=== PATIENT | female | born 1955 | race Caucasian/White ===

== ENCOUNTER → 2016-11-15 | Day surgery (SDC) | payer OTHER ==
[~2016-11-15] VITALS: Ht 162.6 cm; Wt 74.4 kg
[~2016-11-15] MED LIST: ALBU17IN INH; ASPI81TA85 PO; ATEN25TA PO; ATOR1TAB19 PO; BUPIVACAINE/EPIN 0.25% 30 ML VIAL As Ordered ONE; BUPIVACAINE/EPIN 0.25% 30 ML VIAL XX ONE; FISH1000 PO; GLYCOPYRROLATE INJ 0.2 MG/ML 2 ML VIAL As Ordered ONE; HYDROmorphone HCL 1 MG/ML SYRINGE (J1170) As Ordered ONE; KETOROLAC 30 MG/ML VIAL (J1885) As Ordered ONE; KETOROLAC 30 MG/ML VIAL (J1885) IV PRN; LIDOCAINE 2% INJ 100 MG/5 ML SDV (FOR ANES.) As Ordered ONE; LR 1,000 ML IV SCH; MIDAZOLAM INJ 2 MG/2 ML VIAL (J2250) As Ordered ONE; NEOSTIGMINE 1MG/ML 5 ML SYRINGE (J2710) As Ordered ONE; NORCOTAB PO; ONDANSETRON 4MG/2ML VIAL (J2405) As Ordered ONE; ONDANSETRON 4MG/2ML VIAL (J2405) IV PRN; PARO20TA2 PO; POTA10CA PO; PROPOFOL 200 MG/20 ML VIAL As Ordered ONE; ROCURONIUM BROMIDE 50 MG/5 ML VIAL As Ordered ONE; SENN1TAB2 PO; SUMA50TA2 PO; fentaNYL 100 MCG/2 ML INJECTION (J3010) As Ordered ONE; fentaNYL 100 MCG/2 ML INJECTION (J3010) IV PRN
[2016-11-15] MEDS: HYDROmorphone HCL 1 MG/ML SYRINGE (J1170) IV PRN ×5 (14:34→15:20)
[2016-11-15 16:20] VITALS: BP 113/58
--- NOTE | 2016-11-16 14:57 | ECGEPIP ---
Stationary ECG Study [facility] Test Date: 2016-11-15 Pat Name: BELLA ART Department: Room: - Gender: F Pipe Welder: ISABEL : 1955 Requested By: ATA Oakley Order Number: [id number] Reading MD: Jf Cuadra Measurements Intervals [place] Rate: 52 P: 38 NV: 143 QRS: 48 QRSD: 93 T: 34 QT: 439 QTc: 411 Interpretive Statements SINUS BRADYCARDIA NO CHANGE SINCE 02/21/12 Electronically Signed On 11-16-2016 14:57:14 EST by Jf Cuadra
--- NOTE | 2016-11-18 05:22 | RO ---
DATE OF PROCEDURE: 11/15/2016 PREOPERATIVE DIAGNOSIS: Symptomatic cholelithiasis. POSTOPERATIVE DIAGNOSIS: Symptomatic cholelithiasis. PROCEDURE: Laparoscopic cholecystectomy. SURGEON: Dr. Macdonald INDUSTRIAL MACHINE OPERATOR: Dr. Fair ANESTHESIA: General. ESTIMATED BLOOD LOSS (EBL): 5. COMPLICATIONS: None. INDICATIONS FOR PROCEDURE: Patient is a 61-year-old female with persistent right upper quadrant pain found to have symptomatic cholelithiasis. Recommendation to proceed with laparoscopic, possible open cholecystectomy. Risks and benefits of procedure not limited to but including bleeding, infection, hernia formation, damage to surrounding structures, need for further surgery were discussed in detail with the patient. Informed consent was obtained and procedure was planned. DESCRIPTION OF PROCEDURE: Patient brought back to operating room #6. After sufficient sedation, the abdomen was sterilely prepped and draped. Next, time-out was done to confirm proper patient and proper procedure. Following that a stab incision made in left lower quadrant. At this point, a Veress needle was inserted and the abdomen was insufflated to 15 mmHg. Next, a 5 mm supraumbilical incision was made. A 5 mm Optiview port was used to gain access to the abdomen. Once the abdomen was entered, Veress needle site was examined. There were no signs of injury. Veress needle was then removed. A 10 mm port was placed subxiphoid and two 5 mm ports in right upper quadrant. The gallbladder was elevated up towards the right shoulder. Cystic duct and cystic artery were both dissected free. They were both then doubly clipped and cut. Gallbladder was then removed from the gallbladder fossa using electrocautery. Brought out through the subxiphoid port site using a 10 mm EndoCatch bag. Abdomen was then irrigated to confirm hemostasis. Abdomen was then desufflated. Skin incisions closed with #4-0 Vicryl subcuticular sutures. Abdomen was cleaned and dried. Steri-Strips, 4 x 4 and tapes were applied, thus ending procedure.
== END | disposition home or self-care (01) ==
LOC: M SDC 12:24
PROVIDERS: ATTEND Surgery
DX: K80.20 Calculus of gallbladder without cholecystitis without obstruction (principal); H60.399 Other infective otitis externa, unspecified ear; H61.20 Impacted cerumen, unspecified ear; H60.90 Unspecified otitis externa, unspecified ear; J31.0 Chronic rhinitis; H92.10 Otorrhea, unspecified ear; H90.5 Unspecified sensorineural hearing loss; H74.09 Tympanosclerosis, unspecified ear; H69.90 Unspecified Eustachian tube disorder, unspecified ear; H92.09 Otalgia, unspecified ear; I10 Essential (primary) hypertension; G43.909 Migraine, unspecified, not intractable, without status migrainosus; D68.62 Lupus anticoagulant syndrome; E78.5 Hyperlipidemia, unspecified; E87.6 Hypokalemia; T88.59XD Other complications of anesthesia, subsequent encounter; R06.83 Snoring; M81.0 Age-related osteoporosis without current pathological fracture; R29.898 Other symptoms and signs involving the musculoskeletal system; Z78.0 Asymptomatic menopausal state; Z98.51 Tubal ligation status; J44.9 Chronic obstructive pulmonary disease, unspecified; Z88.1 Allergy status to other antibiotic agents; Z91.018 Allergy to other foods; Z79.899 Other long term (current) drug therapy; Z79.82 Long term (current) use of aspirin
CPT/HCPCS: 47562; 88304; 93005; 96374; 96375; J0690; J1170; J1885; J2250; J2405; J2710; J3010

== ENCOUNTER → 2016-12-19 | Outpatient (CLI) | payer OTHER ==
[~2016-12-19] MED LIST changes: -BUPIVACAINE/EPIN 0.25% 30 ML VIAL As Ordered ONE; -BUPIVACAINE/EPIN 0.25% 30 ML VIAL XX ONE; -GLYCOPYRROLATE INJ 0.2 MG/ML 2 ML VIAL As Ordered ONE; -HYDROmorphone HCL 1 MG/ML SYRINGE (J1170) As Ordered ONE; -KETOROLAC 30 MG/ML VIAL (J1885) As Ordered ONE; -KETOROLAC 30 MG/ML VIAL (J1885) IV PRN; -LIDOCAINE 2% INJ 100 MG/5 ML SDV (FOR ANES.) As Ordered ONE; -LR 1,000 ML IV SCH; -MIDAZOLAM INJ 2 MG/2 ML VIAL (J2250) As Ordered ONE; -NEOSTIGMINE 1MG/ML 5 ML SYRINGE (J2710) As Ordered ONE; -ONDANSETRON 4MG/2ML VIAL (J2405) As Ordered ONE; -ONDANSETRON 4MG/2ML VIAL (J2405) IV PRN; -PROPOFOL 200 MG/20 ML VIAL As Ordered ONE; -ROCURONIUM BROMIDE 50 MG/5 ML VIAL As Ordered ONE; -fentaNYL 100 MCG/2 ML INJECTION (J3010) As Ordered ONE; -fentaNYL 100 MCG/2 ML INJECTION (J3010) IV PRN
--- NOTE | 2016-12-19 11:05 | REPMRS ---
Patient History The patient states she had a clinical breast exam in Patient is postmenopausal. No known family history of cancer. Taking unspecified hormones for 1 year. Digital Woman Screen Mammo: December 19, 2016 - Exam #: [id number] Bilateral CC and MLO view(s) were taken. Technologist: Enedelia Huerta, Technologist Prior study comparison: November 29, 2015, digital woman screen mammo performed at [facility]. November 22, 2014, digital woman screen mammo performed at [facility]. November 18, 2013, digital woman screen mammo performed at [facility]. FINDINGS: There are scattered fibroglandular densities. There has been no change in the appearance of the mammogram from the prior studies. There is a mild amount of scattered fibroglandular density which is fairly symmetric. There is no interval development of dominant mass, architectural distortion, or clustered microcalcification suggestive of malignancy. ASSESSMENT: BI-RADS/ACR category 1 mammogram. Negative. Recommendation Routine screening mammogram in 1 year (for women over age 40). This mammogram was interpreted with the aid of an FDA-approved computer-aided dectection system. Electronically Signed By: Ramiro Mane MD 12/19/16 [id number]
== END ==
LOC: M WHC 08:51
PROVIDERS: ATTEND Nurse Practitioner Women's Health
DX: Z12.31 Encounter for screening mammogram for malignant neoplasm of breast (principal); Z78.0 Asymptomatic menopausal state

== ENCOUNTER → 2016-12-19 | Outpatient (REF) | payer OTHER | LOC: M SFHCWAGY 15:08 | PROVIDERS: ATTEND Nurse Practitioner Women's Health | DX: Z12.4 Encounter for screening for malignant neoplasm of cervix (principal); N95.2 Postmenopausal atrophic vaginitis ==

== ENCOUNTER → 2017-01-02 | Outpatient (CLI) | payer OTHER ==
--- NOTE | 2017-01-03 13:07 | DEXA ---
AP SPINE L1 - L4 1.010 -1.5 -0.6 LT FEMUR TOTAL 0.846 -1.3 -0.6 RT FEMUR TOTAL 0.769 -1.9 -1.2 TOTAL BODY TOTAL OTHER DUAL FEMUR FRAX* ASSESSMENT Risk factors: None. 10 year probability of fracture Major osteoporotic fracture 12.1 % Hip fracture 2.3 % COMMENTS: There is low bone density of the spine. There is low bone density of the left hip. There is osteoporosis of the right hip based on femoral neck T score -2.5. There is degenerative change in the spine which may artificially elevate the BMD. The increased density of the spine does not represent significant change since 11/24/2014. The decreased density of the left hip does not represent a significant change since 11/24/2014. The decreased density of the right hip does represent a significant change. The density of the spine has decreased 3.8% since initial exam on 03/21/2006. The spine density has increased 1.3% since the most recent exam on 11/24/2014. The density of the left hip has decreased 3.5% since the initial exam on 2005. The density of the left hip has decreased 0.9% since the most recent exam on . The density of the right hip has decreased 2.9% since the initial exam on 2015. The density of the right hip has decreased 1.7% since the most recent exam on . FOLLOW-UP: Recommendation for the next bone density exam: 2 years. LUL
== END ==
LOC: M WHC 07:52
PROVIDERS: ATTEND Nurse Practitioner Women's Health
DX: M85.80 Other specified disorders of bone density and structure, unspecified site (principal); Z78.0 Asymptomatic menopausal state

== ENCOUNTER → 2017-07-21 | Outpatient (REF) | payer OTHER ==
[~2017-07-21] MED LIST changes: -PARO20TA2 PO; +PARO20TA3 PO
== END ==
LOC: M LAB REF 13:19
PROVIDERS: ATTEND Physician Assistant
DX: J02.9 Acute pharyngitis, unspecified (principal)

== ENCOUNTER → 2018-04-01 | Outpatient (CLI) | payer OTHER | LOC: M WHC 09:13 | DX: Z12.31 Encounter for screening mammogram for malignant neoplasm of breast (principal) | CPT/HCPCS: 77067 ==

== ENCOUNTER → 2018-10-20 | Outpatient (REF) | payer OTHER | LOC: M LAB REF 10:19 | DX: H60.8X3 Other otitis externa, bilateral (principal) ==

== ENCOUNTER → 2019-02-15 | Outpatient (REF) | payer OTHER ==
[~2019-02-15] MED LIST changes: +HYDR-3715 PO; +KLOR10TA76 PO; -NORCOTAB PO; -POTA10CA PO; -SENN1TAB2 PO; +SENN1TAB40 PO
== END ==
LOC: M LAB REF 16:12
PROVIDERS: ATTEND Physician Assistant Medical
DX: H92.12 Otorrhea, left ear (principal)

== ENCOUNTER → 2019-04-02 | Outpatient (CLI) | payer OTHER ==
--- NOTE | 2019-04-02 11:03 | REPMRS ---
Patient History The patient states she had a clinical breast exam in 03/2019. No known family history of cancer. Took unspecified hormones for 1 year. 3D TOMOSYNTHESIS WAS PERFORMED. Digital Woman Screen Mammo: April 02, 2019 - Exam #: [id number] Bilateral CC and MLO view(s) were taken. Technologist: Rosangela Oliver, Technologist Prior study comparison: April 01, 2018, digital woman screen mammo performed at [facility]. December 19, 2016, digital woman screen mammo performed at [facility]. FINDINGS: There are scattered fibroglandular densities. There has been no change in the appearance of the mammogram from the prior studies. There is a mild amount of residual fibroglandular tissue which is fairly symmetric. There is no interval development of dominant mass, architectural distortion, or clustered microcalcification suggestive of malignancy. Assessment: BI-RADS/ACR category 1 mammogram. Negative Mammogram. Recommendation Routine screening mammogram in 1 year (for women over age 40). This mammogram was interpreted with the aid of an FDA-approved computer-aided dectection system. Electronically Signed By: Samir Beltran MD 04/02/19 [id number]
== END ==
LOC: M WHC 09:00
PROVIDERS: ATTEND Nurse Practitioner Women's Health
DX: Z12.31 Encounter for screening mammogram for malignant neoplasm of breast (principal)

== ENCOUNTER → 2019-07-05 | Outpatient (REF) | payer OTHER | LOC: M LAB REF 12:47 | PROVIDERS: ATTEND Physician Assistant | DX: N39.0 Urinary tract infection, site not specified (principal) ==

== ENCOUNTER → 2020-06-09 | Outpatient (CLI) | payer MEDICARE, OTHER ==
[~2020-06-09] MED LIST changes: -ASPI81TA85 PO; +ASPI81TA86 PO; +SENN-53 PO; -SENN1TAB40 PO
--- NOTE | 2020-07-05 10:04 | REPMRS ---
Patient History The patient states she had a clinical breast exam in 05/2020. Patient is postmenopausal. No known family history of cancer. Took unspecified hormones for 1 year. Digital Woman Screen Mammo: June 09, 2020 - Exam #: [id number] Bilateral CC and MLO view(s) were taken. Technologist: Gabriela Ortega, Technologist Prior study comparison: April 02, 2019, bilateral digital woman screen mammo performed at [facility]. April 01, 2018, digital woman screen mammo performed at [facility]. December 19, 2016, digital woman screen mammo performed at [facility]. FINDINGS: The breast tissue is almost entirely fat. The Volpara volumetric breast density category is: A. There has been no change in the appearance of the mammogram from the prior studies. There is no interval development of dominant mass, architectural distortion, or grouped microcalcification typical of malignancy. 3-D tomosynthesis shows no additional findings. Report was delayed due to a protracted computer network disruption experienced by this facility. Assessment: BI-RADS/ACR category 1 mammogram. Negative Mammogram. Recommendation Routine screening mammogram of both breasts in 1 year (for women over age 40). This patient's Lifetime Breast Cancer RIsk is estimated at 5.2 %. This mammogram was interpreted with the aid of an FDA-approved computer-aided dectection system. Electronically Signed By: Ramiro Mane MD 07/05/20 [id number]
== END ==
LOC: M WHC 11:23
PROVIDERS: ATTEND Nurse Practitioner Women's Health
DX: Z12.31 Encounter for screening mammogram for malignant neoplasm of breast (principal)

== ENCOUNTER → 2020-10-02 | Outpatient (REF) | payer MEDICARE, OTHER | LOC: M LAB REF 12:25 | PROVIDERS: ATTEND Physician Assistant Medical | DX: H60.63 Unspecified chronic otitis externa, bilateral (principal) ==

== ENCOUNTER → 2021-01-09 | Outpatient (CLI) | payer MEDICARE, BC ==
--- NOTE | 2021-01-09 11:29 | REPVR ---
PROCEDURE INFORMATION: Exam: CT Temporal Bones Without Contrast. Exam date and time: 01/09/2021 10:54 AM Age: 65 years old Clinical indication: Other: Ocheria cecy TECHNIQUE: Imaging protocol: Computed tomography images of the temporal bones without contrast. Radiation optimization: All CT scans at this facility use at least one of these dose optimization techniques: automated exposure control; mA and/or kV adjustment per patient size (includes targeted exams where dose is matched to clinical indication); or iterative reconstruction. COMPARISON: No relevant prior studies available. FINDINGS: Right inner ear: Normal. Right ossicles and middle ear: The middle ear ossicles are intact. There is thickening of the right tympanic membrane, potentially scarring. Right external auditory canal: There is diffuse soft tissue thickening of the right external auditory canal. Right facial nerve canal: Normal. Right jugular foramen: No jugular dehiscence. Right carotid canal: No aberrant carotid canal. Right mastoid air cells: There is fluid opacification of right mastoid air cells. Left inner ear: Normal. Left ossicles and middle ear: Normal. The middle ear ossicles are intact. Left external auditory canal: Normal. Left facial nerve canal: Normal. Left jugular foramen: No jugular dehiscence. Left carotid canal: No aberrant carotid canal. Left mastoid air cells: Normal. No mastoid effusions. Soft tissues: Unremarkable. IMPRESSION: 1. Diffuse thickening of the right external auditory canal, suggestive of otitis externa. 2. Thickening of the right tympanic membrane, potentially scarring. 3. Fluid opacification of left mastoid air cells, likely effusion. Electronically signed by: Tere Castano On 01/09/2021 11:29:29 AM
== END ==
LOC: M RAD 10:50
PROVIDERS: ATTEND Physician Assistant Medical
DX: H92.13 Otorrhea, bilateral (principal)

== ENCOUNTER → 2021-04-11 | Outpatient (REF) | payer MEDICARE, BC | LOC: M LAB REF 12:19 | PROVIDERS: ATTEND Physician Assistant Medical | DX: H92.13 Otorrhea, bilateral (principal) ==

== ENCOUNTER → 2021-06-21 | Outpatient (CLI) | payer MEDICARE, BC ==
--- NOTE | 2021-06-22 13:29 | REPMRS ---
Patient History The patient states she had a clinical breast exam in 2020. No known family history of cancer. Took unspecified hormones for 1 year. No breast complaints today Patient signed the MRS sheet 1st covid vaccine 12/09/20-left arm-Pfizer 2nd covid vaccine 12/30/20-left arm Priors on PACS Patient Identification Verified Digital Woman Screen Mammo: June 21, 2021 - Exam #: [id number] Bilateral CC and MLO view(s) were taken. Technologist: Gabriela Ortega, Technologist Prior study comparison: June 09, 2020, bilateral digital woman screen mammo performed at [facility]. April 02, 2019, bilateral digital woman screen mammo performed at [facility]. April 01, 2018, digital woman screen mammo performed at [facility]. FINDINGS: The breast tissue is almost entirely fat. The Volpara volumetric breast density category is: A. There has been no change in the appearance of the mammogram from the prior studies. There is no interval development of dominant mass, architectural distortion, or grouped microcalcification typical of malignancy. 3-D tomosynthesis shows no additional findings. Assessment: BI-RADS/ACR category 1 mammogram. Negative Mammogram. Recommendation Routine screening mammogram of both breasts in 1 year (for women over age 40). This patient's [facility] Lifetime Breast Cancer Risk is estimated at 4.9 %. This mammogram was interpreted with the aid of an FDA-approved computer-aided dectection system. Electronically Signed By: Ramiro Mane MD 06/22/21 1400
== END ==
LOC: M WHC 10:10
PROVIDERS: ATTEND Nurse Practitioner Women's Health
DX: Z12.31 Encounter for screening mammogram for malignant neoplasm of breast (principal); Z92.29 Personal history of other drug therapy

== ENCOUNTER → 2021-06-21 | Outpatient (REF) | payer MEDICARE, BC | LOC: M SFHCWAGY 13:55 | PROVIDERS: ATTEND Nurse Practitioner Women's Health | DX: Z12.4 Encounter for screening for malignant neoplasm of cervix (principal); N95.2 Postmenopausal atrophic vaginitis | CPT/HCPCS: 87624; G0123 ==

== ENCOUNTER 2022-04-03 14:45 | Outpatient (CLI) | payer MEDICARE, BC ==
[~2022-04-03] VITALS: Ht 162.6 cm; Wt 83.0 kg
[~2022-04-03 14:45] MED LIST changes: +ALBUTEROL 90 MCG/ACT 8GM HFA INHALER INH PRN; +ALBUTEROL SULFATE 2.5 MG/0.5 ML INH NEB SOLN INH PRN; +EPINEPHrine INJ 1 MG/ML 1ML AMP IM PRN; -KLOR10TA76 PO; +POTA-136 PO; +diphenhydrAMINE 50MG/ML VIAL (J1200) IV PRN; +methylPREDNISolone 125MG 2ML VIAL IV PRN
[2022-04-03 15:32] VITALS: BP 138/86
[2022-04-03 15:34] VITALS: BP 138/86
[2022-04-03] MEDS ORDERED: NS 1,000 ML IV SCH (15:35)
[2022-04-03] MEDS ORDERED: BEBTELOVIMAB 175MG 2ML VIAL (EUA) IV ONE (16:00)
[2022-04-03 16:35] VITALS: BP 142/83
[2022-04-03 16:56] VITALS: BP 150/80
== END 2022-04-03 17:04 | disposition home or self-care (01) ==
LOC: M OPCLI4 14:45 → M 4MAIN 14:51 → M OPCLI4 17:04
PROVIDERS: ATTEND Family Medicine
DX: U07.1 COVID-19 (principal); Z88.8 Allergy status to other drugs, medicaments and biological substances; Z91.018 Allergy to other foods

== ENCOUNTER → 2022-06-05 | Outpatient (CLI) | payer MEDICARE, BC ==
[~2022-06-05] MED LIST changes: -ALBUTEROL 90 MCG/ACT 8GM HFA INHALER INH PRN; -ALBUTEROL SULFATE 2.5 MG/0.5 ML INH NEB SOLN INH PRN; -EPINEPHrine INJ 1 MG/ML 1ML AMP IM PRN; -diphenhydrAMINE 50MG/ML VIAL (J1200) IV PRN; -methylPREDNISolone 125MG 2ML VIAL IV PRN
== END ==
LOC: M SLEEP 20:00
PROVIDERS: ATTEND Nurse Practitioner Family
DX: G47.33 Obstructive sleep apnea (adult) (pediatric) (principal)

== ENCOUNTER → 2022-06-27 | Outpatient (CLI) | payer MEDICARE, BC | LOC: M WHC 08:14 | PROVIDERS: ATTEND Nurse Practitioner Family | DX: Z12.31 Encounter for screening mammogram for malignant neoplasm of breast (principal); Z13.820 Encounter for screening for osteoporosis; M85.89 Other specified disorders of bone density and structure, multiple sites ==

== ENCOUNTER → 2022-06-27 | Outpatient (REF) | payer MEDICARE, BC | LOC: M PLALAB 09:47 | PROVIDERS: ATTEND Nurse Practitioner Family | DX: Z12.4 Encounter for screening for malignant neoplasm of cervix (principal); N95.2 Postmenopausal atrophic vaginitis ==

== ENCOUNTER → 2022-07-02 | Outpatient (CLI) | payer MEDICARE, BC | LOC: M SLEEP 20:00 | PROVIDERS: ATTEND Nurse Practitioner Family | DX: G47.33 Obstructive sleep apnea (adult) (pediatric) (principal) ==

== ENCOUNTER → 2022-11-25 | Outpatient (CLI) | payer MEDICARE, BC | LOC: M SOG 09:38 | PROVIDERS: ATTEND Orthopaedic Surgery Hand Surgery | DX: M25.532 Pain in left wrist (principal) ==

== ENCOUNTER → 2022-12-12 | Outpatient (CLI) | payer MEDICARE, BC | LOC: M WUC 14:44 | PROVIDERS: ATTEND Family Medicine | DX: M54.50 Low back pain, unspecified (principal); M47.816 Spondylosis without myelopathy or radiculopathy, lumbar region ==

== ENCOUNTER → 2023-07-02 | Outpatient (REF) | payer MEDICARE, BC | LOC: M SFHCWAGY 17:22 | PROVIDERS: ATTEND Nurse Practitioner Family | DX: Z12.4 Encounter for screening for malignant neoplasm of cervix (principal); N95.2 Postmenopausal atrophic vaginitis ==

== ENCOUNTER → 2023-07-02 | Outpatient (CLI) | payer MEDICARE, BC | LOC: M WHC 13:45 | PROVIDERS: ATTEND Nurse Practitioner Family | DX: Z12.31 Encounter for screening mammogram for malignant neoplasm of breast (principal) ==

== ENCOUNTER → 2023-09-10 | Outpatient (REF) | payer MEDICARE, BC | LOC: M LAB REF 17:33 | PROVIDERS: ATTEND Physician Assistant Medical | DX: H60.63 Unspecified chronic otitis externa, bilateral (principal) ==

== ENCOUNTER → 2024-08-31 | Outpatient (CLI) | payer MEDICARE, BC | LOC: M WHC 08:11 | PROVIDERS: ATTEND Nurse Practitioner Family | DX: Z12.31 Encounter for screening mammogram for malignant neoplasm of breast (principal); R92.313 Mammographic fatty tissue density, bilateral breasts ==

== ENCOUNTER → 2025-09-28 | Outpatient (REF) | payer MEDICARE, BC | LOC: M LAB REF 18:34 | PROVIDERS: ATTEND Physician Assistant Medical | DX: H60.63 Unspecified chronic otitis externa, bilateral (principal) ==

== ENCOUNTER → 2025-10-10 | Outpatient (CLI) | payer MEDICARE, BC | LOC: M WHC 07:51 | PROVIDERS: ATTEND Nurse Practitioner Family | DX: Z12.31 Encounter for screening mammogram for malignant neoplasm of breast (principal) ==